=== PATIENT | female | born 2000 | race African-American/Black ===

== ENCOUNTER 2020-01-25 16:19 | Emergency (ER) | payer BC ==
[~2020-01-25] VITALS: Ht 167.6 cm; Wt 86.1 kg
[2020-01-25 16:26] VITALS: TEMP 99.1
[2020-01-25] MEDS ORDERED: APTENSIO XR40 MG PO (16:46)
[2020-01-25 17:34] VITALS: BP 120/75; PULSE 106
== END 2020-01-25 17:40 | disposition home or self-care (01) ==
LOC: COL.ER 16:19
DX: T43.631A Poisoning by methylphenidate, accidental (unintentional), initial encounter (principal); F98.8 Other specified behavioral and emotional disorders with onset usually occurring in childhood and adolescence

== ENCOUNTER 2020-04-05 14:33 | Emergency (ER) | payer BC ==
[~2020-04-05] VITALS: Ht 167.6 cm; Wt 74.5 kg
[~2020-04-05 14:33] MED LIST: APTENSIO XR40 MG PO
[2020-04-05 15:14] LABS: COLLECTION METHOD CLEAN CATCH
[2020-04-05 15:25] LABS: PH 8 (5-8); SQUAMOUS EPITHELIAL 0-2 /hpf; URINE APPEARANCE Clear; URINE BACTERIA None Seen /hpf; URINE BILIRUBIN Negative (NEGATIVE); URINE BLOOD Negative (NEGATIVE); URINE COLOR Yellow; URINE GLUCOSE Negative (NEGATIVE); URINE KETONE Negative (NEGATIVE); URINE LEUKOCYTE ESTERASE Negative (NEGATIVE); URINE NITRATE Negative (NEGATIVE); URINE PROTEIN(semi-quant) Negative (NEGATIVE); URINE RBC None Seen /hpf; URINE UROBILINOGEN Negative (NEGATIVE)
[2020-04-05 15:44] LABS: TRICYCLIC ANTIDEPRESS URINE NEGATIVE
[2020-04-05 15:45] LABS: BASO % 0.3 % (0.0-2.0); EOS % 0.4 % (0-4.0); GRAN # 5.1 (1.4-6.5); HEMOGLOBIN 11.3 g/dl (12.0-15.0); LYMPH # 1.5 (1.2-3.4); LYMPH % 20.9 % (20.0-51.0); MEAN CELL VOLUME 88 fl (80.0-95.0); MEAN CORPUSCULAR HEMOGLOBIN 28 pg (26.0-32.0); MEAN CORPUSCULAR HGB CONC 32 g/dl (33.0-37.0); MEAN PLATELET VOLUME 10.4 fl (7.4-10.4); MONO # 0.4 (0.1-0.6); MONO % 6.1 % (1.7-9.3); PLATELET COUNT 253 K/mm3 (130-400); RED BLOOD COUNT 3.99 M/mm3 (4.10-5.30); REDCELL DISTRIBUTION WIDTH-CV 14.6 % (11.5-14.5)
[2020-04-05 15:46] LABS: HEMATOCRIT 34.9 % (35.0-45.0)
[2020-04-05 15:54] LABS: ALCOHOL(ethanol),MEDICAL < 10 mg/dL
[2020-04-05 16:09] LABS: ALBUMIN 4.2 gm/dL (3.5-5.0); AST,SGOT 23 U/L (15-37); BILIRUBIN,TOTAL 0.5 mg/dL (0.0-1.0); BLOOD UREA NITROGEN 8 mg/dL (7-17); CARBON DIOXIDE 25 mmol/L (22-30); CHLORIDE 107 mmol/L (98-107); CREATININE, serum 0.5 (0.52-1.25); GLUCOSE 94 mg/dL (74-106); POTASSIUM 4.3 mmol/L (3.4-5.0); SODIUM 138 mmol/L (137-145); TOTAL PROTEIN 7.4 gm/dL (6.4-8.2)
[2020-04-05 16:10] LABS: ACETAMINOPHEN < 10 ug/mL (10-30); ALANINE AMINOTRANSFERASE 11 U/L (4-34); ALKALINE PHOSPHATASE 94 U/L (50-136); SALICYLATE < 1.0 mg/dL
[2020-04-05 16:11] LABS: ANION GAP 6 mmol/L (7-16); CALCIUM 9.3 mg/dL (8.4-10.2)
[2020-04-05 16:40] LABS: TSH w REFLEX 0.605 uIU/mL (0.465-4.680)
[2020-04-05 16:45] VITALS: TEMP 97.4
[2020-04-05 20:30] VITALS: BP 124/70; PULSE 78
== END 2020-04-05 20:30 | disposition home or self-care (01) ==
LOC: COL.ER 14:33
PROVIDERS: Family Medicine
DX: T43.631A Poisoning by methylphenidate, accidental (unintentional), initial encounter (principal); Z32.02 Encounter for pregnancy test, result negative; X58.XXXA Exposure to other specified factors, initial encounter

== ENCOUNTER 2020-07-31 13:11 | Emergency (ER) | payer BC ==
[~2020-07-31] VITALS: Ht 167.6 cm; Wt 97.3 kg
[2020-07-31] MEDS ORDERED: PROZAC40 MG PO (13:21)
[2020-07-31 13:51] LABS: BASO % 0.1 % (0.0-2.0); EOS # 0.1 (0.0-0.7); EOS % 0.7 % (0-4.0); GRAN # 5.2 (1.4-6.5); GRAN % 68.3 % (42.2-75.2); HEMATOCRIT 35.3 % (35.0-45.0); HEMOGLOBIN 11.5 g/dl (12.0-15.0); LYMPH # 1.8 (1.2-3.4); LYMPH % 24.2 % (20.0-51.0); MEAN CELL VOLUME 89 fl (80.0-95.0); MEAN CORPUSCULAR HEMOGLOBIN 29 pg (26.0-32.0); MEAN CORPUSCULAR HGB CONC 33 g/dl (33.0-37.0); MEAN PLATELET VOLUME 10.8 fl (7.4-10.4); MONO # 0.5 (0.1-0.6); MONO % 6.4 % (1.7-9.3); PLATELET COUNT 231 K/mm3 (130-400); RED BLOOD COUNT 3.98 M/mm3 (4.10-5.30); REDCELL DISTRIBUTION WIDTH-CV 13.5 % (11.5-14.5)
[2020-07-31 14:01] VITALS: TEMP 98.1
[2020-07-31 14:10] LABS: COLLECTION METHOD CLEAN CATCH
[2020-07-31 14:20] LABS: MUCOUS Present /lpf; PH 5 (5-8); URINE APPEARANCE Hazy; URINE BACTERIA None Seen /hpf; URINE BILIRUBIN Negative (NEGATIVE); URINE BLOOD Negative (NEGATIVE); URINE COLOR Yellow; URINE GLUCOSE Negative (NEGATIVE); URINE KETONE Negative (NEGATIVE); URINE LEUKOCYTE ESTERASE 3+ (NEGATIVE); URINE NITRATE Negative (NEGATIVE); URINE PROTEIN(semi-quant) 1+ (NEGATIVE)
[2020-07-31 14:26] LABS: TRICYCLIC ANTIDEPRESS URINE NEGATIVE
[2020-07-31 15:43] LABS: ALANINE AMINOTRANSFERASE 11 U/L (4-34); ALBUMIN 4.4 gm/dL (3.5-5.0); ALKALINE PHOSPHATASE 102 U/L (50-136); ANION GAP 8 mmol/L (7-16); AST,SGOT 25 U/L (15-37); BILIRUBIN,TOTAL 0.2 mg/dL (0.0-1.0); BLOOD UREA NITROGEN 7 mg/dL (7-17); CALCIUM 9.3 mg/dL (8.4-10.2); CARBON DIOXIDE 23 mmol/L (22-30); CHLORIDE 106 mmol/L (98-107); CREATININE, serum 0.65 (0.52-1.25); GLUCOSE 84 mg/dL (74-106); POTASSIUM 3.7 mmol/L (3.4-5.0); SODIUM 138 mmol/L (137-145); TOTAL PROTEIN 8.3 gm/dL (6.4-8.2)
[2020-07-31 15:44] LABS: ACETAMINOPHEN < 10 ug/mL (10-30); ALCOHOL(ethanol),MEDICAL < 10 mg/dL; SALICYLATE < 1.0 mg/dL
[2020-07-31 16:09] VITALS: BP 132/90; PULSE 74
== END 2020-07-31 16:09 | disposition home or self-care (01) ==
LOC: COL.ER 13:11
PROVIDERS: Emergency Medicine
DX: F41.8 Other specified anxiety disorders (principal); R55 Syncope and collapse; F60.3 Borderline personality disorder; F50.9 Eating disorder, unspecified; Z98.890 Other specified postprocedural states; Z32.02 Encounter for pregnancy test, result negative; V47.5XXA Car driver injured in collision with fixed or stationary object in traffic accident, initial encounter; Y92.481 Parking lot as the place of occurrence of the external cause
CPT/HCPCS: J7030

== ENCOUNTER 2020-11-22 12:10 | Emergency (ER) | payer BC ==
[~2020-11-22] VITALS: Ht 167.6 cm; Wt 81.8 kg
[~2020-11-22 12:10] MED LIST changes: +PROZAC40 MG PO
[2020-11-22 12:14] VITALS: TEMP 98.2
[2020-11-22 12:39] LABS: COLLECTION METHOD CLEAN CATCH
[2020-11-22 12:49] LABS: MUCOUS Present /lpf; PH 5 (5-8); URINE APPEARANCE Hazy; URINE BACTERIA Rare /hpf; URINE BILIRUBIN Negative (NEGATIVE); URINE BLOOD Negative (NEGATIVE); URINE COLOR Yellow; URINE GLUCOSE Negative (NEGATIVE); URINE KETONE Negative (NEGATIVE); URINE LEUKOCYTE ESTERASE Negative (NEGATIVE); URINE NITRATE Negative (NEGATIVE); URINE PROTEIN(semi-quant) Negative (NEGATIVE); URINE UROBILINOGEN Negative (NEGATIVE)
[2020-11-22 12:55] LABS: TRICYCLIC ANTIDEPRESS URINE NEGATIVE
[2020-11-22 13:37] LABS: BASO % 0.2 % (0.0-2.0); EOS % 0.6 % (0-4.0); GRAN % 60.9 % (42.2-75.2); HEMATOCRIT 37.8 % (35.0-45.0); HEMOGLOBIN 12.2 g/dl (12.0-15.0); LYMPH # 2.1 (1.2-3.4); LYMPH % 31.3 % (20.0-51.0); MEAN CELL VOLUME 90 fl (80.0-95.0); MEAN CORPUSCULAR HEMOGLOBIN 29 pg (26.0-32.0); MEAN CORPUSCULAR HGB CONC 32 g/dl (33.0-37.0); MEAN PLATELET VOLUME 10.5 fl (7.4-10.4); MONO # 0.4 (0.1-0.6); MONO % 6.7 % (1.7-9.3); PLATELET COUNT 223 K/mm3 (130-400); REDCELL DISTRIBUTION WIDTH-CV 13.6 % (11.5-14.5)
[2020-11-22 14:20] LABS: ALBUMIN 4.6 gm/dL (3.5-5.0); ANION GAP 11 mmol/L (7-16); BLOOD UREA NITROGEN 4 mg/dL (7-17); CALCIUM 9.5 mg/dL (8.4-10.2); CARBON DIOXIDE 24 mmol/L (22-30); CHLORIDE 106 mmol/L (98-107); CREATININE, serum 0.61 (0.52-1.25); GLUCOSE 101 mg/dL (74-106); POTASSIUM 3.4 mmol/L (3.4-5.0); SODIUM 141 mmol/L (137-145); TOTAL PROTEIN 8.5 gm/dL (6.4-8.2)
[2020-11-22 14:21] LABS: ALANINE AMINOTRANSFERASE 12 U/L (4-34); ALKALINE PHOSPHATASE 92 U/L (50-136); AST,SGOT 27 U/L (15-37); BILIRUBIN,TOTAL 0.5 mg/dL (0.0-1.0)
[2020-11-22 15:23] LABS: ACETAMINOPHEN < 10 ug/mL (10-30); ALCOHOL(ethanol),MEDICAL < 10 mg/dL; SALICYLATE < 1.0 mg/dL
[2020-11-22 18:35] VITALS: BP 97/82; PULSE 100
== END 2020-11-22 18:35 | disposition home or self-care (01) ==
LOC: COL.ER 12:10
PROVIDERS: Nurse Practitioner
DX: T43.592A Poisoning by other antipsychotics and neuroleptics, intentional self-harm, initial encounter (principal); F32.9 Major depressive disorder, single episode, unspecified; F43.10 Post-traumatic stress disorder, unspecified; F41.9 Anxiety disorder, unspecified; F60.3 Borderline personality disorder; Z79.899 Other long term (current) drug therapy

== ENCOUNTER 2023-10-19 04:13 | Emergency (ER) | payer BC ==
[~2023-10-19] VITALS: Ht 167.6 cm; Wt 109.1 kg
[2023-10-19 04:24] VITALS: BP 133/92; TEMP 98.5
[2023-10-19 04:51] VITALS: PULSE 76
== END 2023-10-19 04:51 | disposition home or self-care (01) ==
LOC: COL.ER 04:13
DX: S81.812A Laceration without foreign body, left lower leg, initial encounter (principal); W26.9XXA Contact with unspecified sharp object(s), initial encounter

== ENCOUNTER 2023-11-05 15:23 | Emergency (ER) | payer BC ==
[~2023-11-05] VITALS: Ht 167.6 cm; Wt 109.1 kg
[2023-11-05 15:33] VITALS: TEMP 98.1
[2023-11-05] MEDS ORDERED: NS 1,000 ML IV ONE (16:00)
[2023-11-05 16:10] LABS: BASO % 0.2 % (0.0-2.0); EOS % 0.5 % (0.0-4.0); GRAN # 5.5 K/mm3 (1.4-6.5); GRAN % 67.4 % (42.2-75.2); HEMATOCRIT 40.5 % (37.0-47.0); HEMOGLOBIN 13.2 g/dl (12.5-16.0); LYMPH # 2.1 K/mm3 (1.2-3.4); LYMPH % 25.9 % (20.0-51.0); MEAN CELL VOLUME 88 fl (80.0-100.0); MEAN CORPUSCULAR HEMOGLOBIN 29 pg (27-31); MEAN CORPUSCULAR HGB CONC 33 g/dl (33.0-37.0); MEAN PLATELET VOLUME 10.8 fl (7.4-10.4); MONO # 0.5 K/mm3 (0.1-0.6); MONO % 5.9 % (1.7-9.3); PLATELET COUNT 276 K/mm3 (130-400); RED BLOOD COUNT 4.63 M/mm3 (4.10-5.30); REDCELL DISTRIBUTION WIDTH-CV 13.6 % (11.5-14.5)
[2023-11-05 16:42] LABS: COLLECTION METHOD CLEAN CATCH
[2023-11-05 16:54] LABS: PH 5.5 (5.0-8.5); URINE APPEARANCE CLEAR (CLEAR/HAZY); URINE BLOOD 2+ (NEGATIVE); URINE COLOR YELLOW (YELLOW); URINE GLUCOSE NEGATIVE (NEGATIVE); URINE KETONE NEGATIVE (NEGATIVE); URINE NITRATE NEGATIVE (NEGATIVE); URINE PROTEIN(semi-quant) NEGATIVE (NEGATIVE)
[2023-11-05 17:09] LABS: ALBUMIN 3.6 g/dL (3.5-5.0); BILIRUBIN,TOTAL 0.4 mg/dL (0.2-1.2); CALCIUM 9.5 mg/dL (8.4-10.2); CREATININE, serum 0.79 mg/dL (0.57-1.11); TOTAL PROTEIN 7.8 g/dl (6.2-8.1)
[2023-11-05 18:36] VITALS: BP 125/90; PULSE 69
== END 2023-11-05 18:36 | disposition home or self-care (01) ==
LOC: COL.ER 15:23
PROVIDERS: Family Medicine; Physician Assistant
DX: R10.30 Lower abdominal pain, unspecified (principal)
CPT/HCPCS: J7030

== ENCOUNTER 2023-11-30 06:02 | Emergency (ER) | payer BC ==
[~2023-11-30] VITALS: Ht 167.6 cm; Wt 122.3 kg
[2023-11-30 06:07] VITALS: BP 122/83; PULSE 119; TEMP 100.3
[2023-11-30] MEDS ORDERED: AMOXICILLIN 8751 TAB PO (06:30)
[2023-11-30] MEDS ORDERED: TYLENOL/CODEINE1 ML PO (06:31)
[2023-11-30] MEDS ORDERED: NORCO 325 MG-51 TAB PO (11:19)
== END 2023-11-30 06:40 | disposition home or self-care (01) ==
LOC: COL.ER 06:02
DX: J02.9 Acute pharyngitis, unspecified (principal)

== ENCOUNTER 2023-12-19 11:35 | Day surgery (SDC) | payer BC ==
[~2023-12-19] VITALS: Ht 170.2 cm; Wt 118.7 kg
[~2023-12-19 11:35] MED LIST changes: +AMOXICILLIN 8751 TAB PO; +LR 1,000 ML IV SCH; +NORCO 325 MG-51 TAB PO; +Ondansetron 4 MG/2 ML VIAL IV PRN; +TYLENOL/CODEINE1 ML PO
[2023-12-19] MEDS ORDERED: RISPERDAL2 MG PO (12:25)
[2023-12-19] MEDS ORDERED: PROZAC 20MG20 MG PO (12:25)
[2023-12-19] MEDS ORDERED: DESYREL 50MG50 MG PO (12:25)
[2023-12-19] MEDS ORDERED: LAMICTAL 100MG100 MG PO (12:25)
[2023-12-19 13:27] VITALS: BP 114/77; PULSE 88; TEMP 97
[2023-12-19 13:45] VITALS: BP 117/81; PULSE 81; TEMP 97
--- NOTE | 2023-12-19 13:45 | NUR ---
PATIENT AMBULATED TO CHAIR WITH STEADY GAIT, ASSIST OF 2. ALERT AND AWAKE. DENIES PAIN, NAUSEA AND SHORTNESS OF BREATH. BREATHING REGULAR AND UNLABORED ON ROOM AIR. SKIN WARM AND DRY. IV IN PLACE. NURSE HANDOFF COMPLETED IN ROOM, INFORMED THAT SOCIAL WORK WILL VISIT PATIENT BEFORE DISCHARGE TO DISCUSS COMMUNITY RESOURCES. SEE CHART FOR VITAL SIGNS. PATIENT HAD CRANBERRY JUICE AND APPLESAUCE, NO DYSPHAGIA. CALL LIGHT IN REACH. PATIENT HAS NO COMPLAINTS.
[2023-12-19 14:00] VITALS: BP 117/60; PULSE 87
--- NOTE | 2023-12-19 14:04 | NUR ---
1142: PT AMBULATED TO BAY 1 WITH STEADY GAIT. ALERT AND ORIENTED. PT STATED UNDERSTANDING OF PROCEDURE. CONSENTS SIGNED. ASSESSMENT COMPLETE. 20G IV STARTED BY HEBER MALDONADO. SERUM HCG OBTAINED AND SENT TO LAB. LR INFUSING WITHOUT DIFFICULTIES. PT STATED THEY HAD SUICIDAL THOUGHTS IN THE PAST 30 DAYS BUT HAS NOT PUT A PLAN IN PLACE. PT SCORED MODERATE RISK ON SUICIDE RISK ASSESSMENT. PT STATED THEY HAD A THERAPIST AND A PSYCHOLOGIST AND HAD PRESCRIBED MEDICATIONS. PT ADMITED TO NOT TAKING PRESCRIBED MEDICATIONS IN OVER A MONTH DUE TO GI ISSUES. INTIATIED ONE-ON-ONE AT THIS TIME. DR. NEGRO NOTIFIED. DR. NEGRO IN TO SPEAK WITH PT AND DEEMED PT A LOW RISK AT THIS TIME. DR. NEGRO REQUESTED SPIRAL GEAR GENERATOR COME TO SPEAK WITH PT ABOUT RESOURCES AFTER PROCEDURE. SPIRAL GEAR GENERATOR CONTACTED.
[2023-12-19 14:15] VITALS: BP 105/93; PULSE 79
[2023-12-19 14:30] VITALS: BP 128/93; PULSE 82
[2023-12-19 14:45] VITALS: BP 113/64; PULSE 87
--- NOTE | 2023-12-19 15:03 | NUR ---
1348: PATIENT STATED THEY FELT SAFE AT HOME AND SAFE TO BE DISCHARGED HOME TODAY. PATIENT REPORTED HAVING REGULAR APPOINTMENTS WITH BOTH A THERAPIST AND PSYCHIATRIST. PATIENT EXPRESSED THAT THEY WERE EXCITED TO GO HOME AND WATCH TV WHILE PLAYING WITH THEIR DOG. PATIENT IS OK WITH MEETING WITH SOCIAL WORK TODAY, BUT STATES "2021 WAS A REALLY ROUGH YEAR FOR ME. 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 SINCE THEN PATIENT STATES "I'M ABLE TO TALK WITH MY THERAPIST AND THEY DO THEIR BEST. I TRY TO BE OPEN AND HONEST. MY MEDS REALLY HELP". IS AWARE OF PATIENT REPORTING NOT TAKING MEDICATIONS DUE TO ABDOMINAL PAIN. 1400: TIMBER ESTIMATOR MET WITH PATIENT IN ROOM. PRINTED RESOURCE PAGES PROVIDED TO PATIENT. 1422: DISCHARGE TEACHING COMPLETED WITH PRINTED EDUCATION AND INSTRUCTIONS SENT HOME WITH PATIENT. PATIENT VERBALIZED UNDERSTANDING OF TEACHING. 1452: PATIENT AMBULATED WITH STEADY GAIT TO RESTROOM. 1459: MET WITH PATIENT IN ROOM. 1502: IV REMOVED. GAUZE AND COBAN PLACED OVER SITE. 1503: PATIENT THANKED NURSE FOR CARE AND WAS DISCHARGED HOME WITH [employer] [employer].
--- NOTE | 2023-12-19 16:26 | NUR ---
used car make ready worker requested to meet with patient to discuss and provide resources. Patient verbalized that she hasn't been able to work for a month and needs access to food. Worker provided written resources for free meals and other [place] resources. Patient provided information on [employer] and completed an application with the patient. Worker contacted Dr Horton's office and requested her signature on the application. Worker provided mental health resources and patient states she has seen [facility] and is currently seeing a therapist from [facility] (virtually every Monday). Worker collaborated with nursing regarding the above information.
[2024-02-06] MEDS ORDERED: ZOFRAN ODT4 MG PO (04:53)
== END 2023-12-19 15:03 | disposition home or self-care (01) ==
LOC: SDCO 11:35
PROVIDERS: Internal Medicine Gastroenterology
DX: K52.9 Noninfective gastroenteritis and colitis, unspecified (principal)
CPT/HCPCS: J2704; J7120

== ENCOUNTER 2024-01-12 07:55 | Emergency (ER) | payer BC ==
[~2024-01-12] VITALS: Ht 167.6 cm; Wt 116.8 kg
[~2024-01-12 07:55] MED LIST changes: +DESYREL 50MG50 MG PO; +LAMICTAL 100MG100 MG PO; -LR 1,000 ML IV SCH; -Ondansetron 4 MG/2 ML VIAL IV PRN; +PROZAC 20MG20 MG PO; +RISPERDAL2 MG PO
[2024-01-12 07:59] VITALS: BP 114/82; PULSE 87; TEMP 98.4
[2024-01-12] MEDS ORDERED: DOXYCYCLINE 10100 MG PO (08:13)
== END 2024-01-12 08:25 | disposition home or self-care (01) ==
LOC: COL.ER 07:55
DX: I88.9 Nonspecific lymphadenitis, unspecified (principal)